=== PATIENT | female | born 1985 | race Caucasian/White ===

== ENCOUNTER → 2016-09-25 | Day surgery (SDC) | payer OTHER ==
[~2016-09-25] VITALS: Ht 165.1 cm; Wt 95.0 kg
[~2016-09-25] MED LIST: *MEPERIDINE 25 MG INJ VIAL PERIprocedural Use ONLY ONE; ACETAMINOPHEN 325MG/HYDROcodone 7.5MG/15ML UDC ONE; AMPICILLIN-SULBACTAM INJ 3 GM VIAL ONE; BACITRACIN TOP OINT 15 GM TUBE ONE; DO NOT ADM ANY ANTICOAGULANT DRUGS XX PRN; ESCI10TA PO; FAMOTIDINE 20 MG/2 ML VIAL ONE; HYDR50TA94 PO; HYDROmorphone HCL PF 1 MG/ML VIAL ONE; LACTATED RINGER'S 1000 ML INJ 1,000 ML IV ONE; LACTATED RINGER'S 1000 ML INJ 1,000 ML ONE; LIDOCAINE 1%/EPINEPHrine 1:100,000 SOLN 30 ML VIAL ONE; MICROFIBRILLAR COLLAGEN HEMOSTAT 1 GM PKT ONE; MICROFIBRILLAR COLLAGEN HEMOSTAT 1 GM PKT TOPICAL ONE; MIDAZOLAM HCL 2 MG/2 ML VIAL ONE; MORPHINE SULFATE 10 MG/ML INJ ONE; NEOSTIGMINE 3 MG/3 ML SYR IV ONE; NORT1TAB PO; OMEP20TA PO; ONDANSETRON HCL 4 MG/2 ML VIAL IV PUSH ONE; OXYMETAZOLINE HCL 0.05% 15 ML NASAL SPRAY NASAL ONE; OXYMETAZOLINE HCL 0.05% 15 ML NASAL SPRAY ONE; PHENYLEPH/NS 1000 MCG/10 ML SYR IV ONE; PROPOFOL 200 MG/20 ML AMP IV ONE; RESP: ALBUTEROL 2.5 MG/3 ML NEB (SCH) ONE; SODIUM CHLORIDE 0.9% INJ 100 ML ONE; ePHEDrine/NS 25 MG/5 ML SYR IV ONE; fentaNYL CITRATE 250 MCG/5 ML AMP ONE
[2016-09-25 07:26] LABS: MEAN CELL VOLUME 84.5 FL (80.0-100.0); MEAN CORPUSCULAR HEMOGLOBIN 29.1 PG (27.0-34.0); MEAN CORPUSCULAR HGB CONC 34.4 % (32.0-36.0); PLATELET COUNT 295 TH/MM3 (150-450); RED BLOOD COUNT 4.38 MIL/MM3 (4.00-5.30); RED CELL DISTRIBUTION WIDTH 12.1 % (11.6-17.2); REVIEW FLAG FINAL; WHITE BLOOD COUNT 9.6 TH/MM3 (4.0-11.0)
[2016-09-25 07:47] VITALS: BP 126/88; PULSE 89; RESP 20; TEMP 97.7; O2SAT 98
[2016-09-25 13:05] VITALS: BP 128/79; PULSE 114; RESP 16; TEMP 99.1; O2SAT 94
--- NOTE | 2016-10-04 07:47 | MP ---
cc: APRIL MCINTOSH M.D. DATE OF OPERATION September 26, [address] April mcintosh PREOPERATIVE DIAGNOSES 1. Adenotonsillar hypertrophy. 2. Chronic tonsillitis. 3. Papillomatous lesion of uvula. 4. Nasal airway obstruction. 5. Nasal septal deviation. 6. Hypertrophy of inferior turbinates. POSTOPERATIVE DIAGNOSES 1. Adenotonsillar hypertrophy. 2. Chronic tonsillitis. 3. Papillomatous lesion of uvula. 4. Nasal airway obstruction. 5. Nasal septal deviation. 6. Hypertrophy of inferior turbinates. OPERATION PERFORMED 1. Open repair nasal septal fracture. 2. Bilateral submucosal resection of inferior turbinates. 3. Adenotonsillectomy. 4. Excisional biopsy of uvular papilloma. INDICATIONS Documented in the history and physical. DESCRIPTION OF OPERATION The patient was taken to OR #2 and placed in the supine position. Following induction of general anesthesia and intubation, the nose was packed bilaterally with cotton pledgets saturated in 0.05% oxymetazoline and the septal mucosa and inferior turbinates were injected with a total of 8 mL of 1% Xylocaine with epinephrine 1:100,000. She was then prepped and draped for surgery. Nasal packing was removed and a hemitransfixion incision was made in the left nasal vestibule and through this incision the mucosa of septum was elevated bilaterally as far as the junction of the bony cartilaginous septum. This exposed the quadrangular cartilage which showed very thick, twisted and irregular deviation with evidence of old septal fracture. A cumulative area of 2 x 2 cm was removed in a piecemeal fashion using a Jennifer elevator and David-Stafford forceps. This was completed preserving 1.5 cm dorsal and caudal cartilaginous struts. When this was completed, the mucosa was elevated from the bony septum and the maxillary crest and the bony septum was removed with David-Stafford forceps and Kevin septal forceps. The maxillary crest was removed using a 6-mm Cezar chisel. The incision was then closed using running suture of 4-0 chromic and the mucosal layers of septum were approximated to each other with a quilting stitch of 4-0 plain gut. Inferior turbinates were addressed next. These were fractured out medially and stab incisions were opened along their inferior surfaces. Through these incisions submucosal soft tissue was reduced using a curette and preserving the conchal bone. The incisions were then cauterized using the suction Bovie at 45 feldman and the remnants of the inferior turbinates were then relateralized to the lateral nasal wall. The nose was then packed with Merocel tampons coated in bacitracin ointment. The table was then turned 90 degrees and a shoulder roll and a McIvor mouth gag were put in place. The tonsils were removed using the ArthroCare Coblator technique. A few sites of venous bleeding were cauterized using the bipolar cautery. These were in the inferior poles of the tonsil fossae bilaterally. When this was completed, the adenoids were removed using the suction Bovie at 45 feldman. Next, the papilloma which was growing on the distal end of the uvula was removed. This was done using sharp dissection. The distal end of the uvula was then cauterized with the Bovie cautery. The stomach was aspirated of few cc's of bilious gastric contents using a #18 [place] sump NG tube. When this was completed, the mouth gag was removed and this procedure was terminated. The patient was reversed from anesthesia and taken to Recovery in good condition. There were no complications. Blood loss was 80 mL. MD JILLIAN Galeano/EVARISTO /10:21 AM /7:10 AM
== END | disposition home or self-care (01) ==
LOC: PHSDC 06:41
PROVIDERS: ATTEND Otolaryngology
DX: J34.3 Hypertrophy of nasal turbinates (principal); J34.2 Deviated nasal septum; J35.3 Hypertrophy of tonsils with hypertrophy of adenoids; D37.05 Neoplasm of uncertain behavior of pharynx; D10.39 Benign neoplasm of other parts of mouth
CPT/HCPCS: 00160; 30140; 30520; 36415; 42100; 42821; 85027; 88304; 88305; J0295; J1170; J2175; J2250; J2270; J2370; J2405; J2710; J3010; J7120; J7613

== ENCOUNTER 2017-03-11 13:53 | Emergency (ER) | payer OTHER ==
[~2017-03-11] VITALS: Ht 165.1 cm; Wt 103.5 kg
[~2017-03-11 13:53] MED LIST changes: -*MEPERIDINE 25 MG INJ VIAL PERIprocedural Use ONLY ONE; -ACETAMINOPHEN 325MG/HYDROcodone 7.5MG/15ML UDC ONE; -AMPICILLIN-SULBACTAM INJ 3 GM VIAL ONE; -BACITRACIN TOP OINT 15 GM TUBE ONE; -DO NOT ADM ANY ANTICOAGULANT DRUGS XX PRN; -FAMOTIDINE 20 MG/2 ML VIAL ONE; -HYDROmorphone HCL PF 1 MG/ML VIAL ONE; -LACTATED RINGER'S 1000 ML INJ 1,000 ML IV ONE; -LACTATED RINGER'S 1000 ML INJ 1,000 ML ONE; -LIDOCAINE 1%/EPINEPHrine 1:100,000 SOLN 30 ML VIAL ONE; -MICROFIBRILLAR COLLAGEN HEMOSTAT 1 GM PKT ONE; -MICROFIBRILLAR COLLAGEN HEMOSTAT 1 GM PKT TOPICAL ONE; -MIDAZOLAM HCL 2 MG/2 ML VIAL ONE; -MORPHINE SULFATE 10 MG/ML INJ ONE; -NEOSTIGMINE 3 MG/3 ML SYR IV ONE; -ONDANSETRON HCL 4 MG/2 ML VIAL IV PUSH ONE; -OXYMETAZOLINE HCL 0.05% 15 ML NASAL SPRAY NASAL ONE; -OXYMETAZOLINE HCL 0.05% 15 ML NASAL SPRAY ONE; -PHENYLEPH/NS 1000 MCG/10 ML SYR IV ONE; -PROPOFOL 200 MG/20 ML AMP IV ONE; -RESP: ALBUTEROL 2.5 MG/3 ML NEB (SCH) ONE; -SODIUM CHLORIDE 0.9% INJ 100 ML ONE; -ePHEDrine/NS 25 MG/5 ML SYR IV ONE; -fentaNYL CITRATE 250 MCG/5 ML AMP ONE
[2017-03-11 14:48] VITALS: BP 172/95; PULSE 89; RESP 16; TEMP 98.1; O2SAT 98
== END 2017-03-11 17:54 | disposition left against medical advice (07) ==
LOC: PHED 13:53
DX: Z53.21 Procedure and treatment not carried out due to patient leaving prior to being seen by health care provider (principal)
CPT/HCPCS: 99281

== ENCOUNTER 2017-06-27 21:05 | Emergency (ER) | payer OTHER ==
[~2017-06-27] VITALS: Ht 165.1 cm; Wt 94.6 kg
[~2017-06-27 21:05] MED LIST changes: -OMEP20TA PO; +OMEP20TA93 PO
[2017-06-27 21:08] VITALS: BP 186/114; PULSE 118; RESP 18; TEMP 98.2; O2SAT 99
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
[2017-06-27] MEDS ORDERED: HYDR-3516 PO (22:06)
[2017-06-27] MEDS ORDERED: PHEN-556 PO (22:06)
[2017-06-27] MEDS ORDERED: HYDR50TA94 PO (22:06)
[2017-06-27] MEDS ORDERED: LEVO100T5 PO (22:06)
[2017-06-27] MEDS ORDERED: ORTH1TAB PO (22:06)
[2017-06-27] MEDS ORDERED: XANA1TAB2 PO (22:06)
--- NOTE | 2017-06-27 22:24 | RADRPT ---
EXAM DATE/TIME: 06/27/2017 21:44 [facility] COMPARISON: No previous studies available for comparison. INDICATIONS : Fall three months ago. Pain ever since in right lower ribs. MEDICAL HISTORY : None. SURGICAL HISTORY : None. ENCOUNTER: Initial ACUITY: 3 months PAIN SCORE: 7/10 LOCATION: Right Ribs FINDINGS: There are healing fractures of the posterior right 10th and 11th ribs. There is no evidence of hemoth orax or pneumothorax. Lungs are grossly clear. Cardiac contours are satisfactory. CONCLUSION: Healing right rib fractures Dennis Wilson MD on June 27, 2017 at 22:21 Board Certified Radiologist. This report was verified electronically.
[2017-06-27] MEDS ORDERED: KETOROLAC TROMETHAMINE 60 MG/2 ML (IM) VIAL IM ONE (22:30)
[2017-06-27 22:55] VITALS: BP 145/95; PULSE 88; RESP 18; O2SAT 99
[2017-06-27] MEDS ORDERED: PERC7.5T13 PO (23:08)
[2017-06-27] MEDS ORDERED: IBUP-232 PO (23:08)
[2017-06-27 23:35] VITALS: RESP 18
== END 2017-06-27 23:41 | disposition home or self-care (01) ==
LOC: PHED 21:05
DX: S22.41XD Multiple fractures of ribs, right side, subsequent encounter for fracture with routine healing (principal); F32.9 Major depressive disorder, single episode, unspecified; K21.9 Gastro-esophageal reflux disease without esophagitis; B19.20 Unspecified viral hepatitis C without hepatic coma; F17.210 Nicotine dependence, cigarettes, uncomplicated; Y93.F2 Activity, caregiving, lifting; Z85.41 Personal history of malignant neoplasm of cervix uteri; Z88.8 Allergy status to other drugs, medicaments and biological substances; Z79.899 Other long term (current) drug therapy
CPT/HCPCS: 71101; 96372; 99284; J1885

== ENCOUNTER 2017-08-15 15:50 | Emergency (ER) | payer OTHER ==
[~2017-08-15] VITALS: Ht 165.1 cm; Wt 93.0 kg
[~2017-08-15 15:50] MED LIST changes: +HYDR-3516 PO; +IBUP-232 PO; +LEVO100T5 PO; -NORT1TAB PO; +ORTH1TAB PO; +PERC7.5T13 PO; +PHEN-556 PO; +XANA1TAB2 PO
[2017-08-15 16:04] VITALS: BP 172/108; PULSE 116; RESP 16; TEMP 98.5; O2SAT 97
[2017-08-15] MEDS ORDERED: HYDR-3583 PO (16:27)
[2017-08-15] MEDS ORDERED: ROBA500T PO (16:29)
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
== END 2017-08-15 17:10 | disposition home or self-care (01) ==
LOC: PHEFT 15:50
DX: M54.5 Low back pain (principal); F32.9 Major depressive disorder, single episode, unspecified; F41.9 Anxiety disorder, unspecified; F17.210 Nicotine dependence, cigarettes, uncomplicated; Z85.41 Personal history of malignant neoplasm of cervix uteri; Z86.19 Personal history of other infectious and parasitic diseases; Z88.8 Allergy status to other drugs, medicaments and biological substances; Z79.899 Other long term (current) drug therapy
CPT/HCPCS: 99283

== ENCOUNTER 2017-08-24 14:15 | Emergency (ER) | payer OTHER ==
[~2017-08-24] VITALS: Ht 165.1 cm; Wt 92.6 kg
[~2017-08-24 14:15] MED LIST changes: -HYDR-3516 PO; +HYDR-3583 PO; -IBUP-232 PO; -PERC7.5T13 PO; +ROBA500T PO
[2017-08-24 14:40] VITALS: BP 190/109; PULSE 116; RESP 18; TEMP 98.5; O2SAT 99
--- NOTE | 2017-08-24 16:26 | PD ---
HPI Chief Complaint: Back/ Neck Pain or Injury Time Seen by Provider: 15:17 Travel History International Travel<30 days: No Contact w/Intl Traveler<30days: No Traveled to known affect area: No History of Present Illness HPI This is a 32-year-old female here with chronic low back pain. She does not endorse any worsening pain. Reports the pain is in his usual place the left lumbar region and radiates down into the leg. No fever chills. No incontinence. No saddle anesthesia. No paresthesias or weakness of the extremity is. She reports her [place] is not helping. Symptom severity is moderate. No aggravating or alleviating factors. 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) Neurologic: No Psychiatric: Yes (ANXIETY) Reproductive: Yes (CERVICAL CANCER) Respiratory: No Immunizations Current: Yes Thyroid Disease: No ?: Not LMP: 3 WEEKS : 0 Past Surgical History Abdominal Surgery: No AICD: No Cardiac Surgery: No Ear Surgery: No Endocrine Surgery: No Eye Surgery: No Genitourinary Surgery: No Gynecologic Surgery: Yes (LEEP PROCEDURE ) Joint Replacement: No Oral Surgery: No Pacemaker: No Thoracic Surgery: No Tonsillectomy: Yes Social History Alcohol Use: No Tobacco Use: Yes (1 ppd) Substance Use: No Allergies-Medications (Allergen,Severity, Reaction): Coded Allergies: ketorolac (Verified Allergy, Severe, LEG EDEMA, 08/24/17) fluconazole (Verified Adverse Reaction, Severe, STOMACH IRRITATION, ) Reported Meds & Prescriptions Reported Meds & Active Scripts Active Robaxin (Methocarbamol) 500 Mg Tab 1,000 Mg PO TID Reported Hydrocodone-Acetaminophen 10-325 mg Tab 1 Tab PO Q6H PRN Hydroxyzine HCl 50 Mg Tab 50 Mg PO TID Levothyroxine (Levothyroxine Sodium) 100 Mcg Tab 100 Mcg PO DAILY Lomaira (Phentermine HCl) 8 Mg Tab 15 Mg PO DAILY Xanax (Alprazolam) 1 Mg Tab 1 Mg PO Q8H PRN Ortho-Novum 1/35 (Norethindrone-Ethinyl Estradiol) 1-35 Mg-Mcg Tab 1 Tab PO DAILY Escitalopram (Escitalopram Oxalate) 10 Mg Tab 10 Mg PO DAILY Omeprazole 20 Mg Tab 40 Mg PO BID Review of Systems Except as stated in HPI: all other systems reviewed are Neg General / Constitutional: No: Fever Eyes: No: Visual changes HENT: No: Headaches Cardiovascular: No: Chest Pain or Discomfort Respiratory: No: Shortness of Breath Gastrointestinal: No: Abdominal Pain Genitourinary: No: Dysuria Physical Exam Narrative GENERAL: Alert and well-appearing 32-year-old female SKIN: Warm and dry. HEAD: Normocephalic. EYES: No injection or drainage. NECK: Supple CARDIOVASCULAR: Regular rate and rhythm without murmurs, gallops, or rubs. RESPIRATORY: Breath sounds equal bilaterally. No accessory muscle use. GASTROINTESTINAL: Abdomen soft, non-tender, nondistended. MUSCULOSKELETAL: No cyanosis, or edema. Normal strength and sensation in lower extremities. BACK: Nontender thoracic or lumbar spine. Without obvious deformity. No CVA tenderness. Data Data Last Documented VS Orders Orders Orphenadrine Inj (Norflex Inj) (08/24/17 16:30) Ed Discharge Order (08/24/17 16:27) MDM Medical Decision Making Medical Screen Exam Complete: Yes Emergency Medical Condition: Yes Differential Diagnosis Acute on chronic low back pain, lumbar strain, sciatica Narrative Course This is a 32-year-old female here with chronic low back pain. She does not endorse any worsening pain. Reports the pain is in his usual place the left lumbar region and radiates down into the leg. No fever chills. No incontinence. No saddle anesthesia. She reports her [place] is not helping. She has a normal neurologic exam. No midline spine tenderness. She is well- appearing. Vital signs are stable. She'll be given a shot of Norflex and instructed to follow-up with her primary doctor. Diagnosis Primary Impression: Back pain Qualified Codes: M54.5 - Low back pain Referrals: Orthopaedic Surgeon Orthopedist Additional Instructions: Continue current pain regimen. Follow-up with your primary doctor. Apply ice and/or heat for comfort. Disposition: 01 DISCHARGE HOME Condition: Stable Jocelyne Jasmine Aug 24, 2017 16:26
[2017-08-24] MEDS ORDERED: ORPHENADRINE INJ 60 MG/2 ML AMP IM ONE (16:30)
== END 2017-08-24 16:52 | disposition home or self-care (01) ==
LOC: PHED 14:15 → PHEFT 16:52
DX: M54.5 Low back pain (principal); G89.29 Other chronic pain; F32.9 Major depressive disorder, single episode, unspecified; F17.210 Nicotine dependence, cigarettes, uncomplicated; Z86.19 Personal history of other infectious and parasitic diseases; Z85.41 Personal history of malignant neoplasm of cervix uteri; Z88.8 Allergy status to other drugs, medicaments and biological substances; Z79.899 Other long term (current) drug therapy
CPT/HCPCS: 96372; 99283; J2360

== ENCOUNTER 2018-03-24 06:17 | Observation (INO) ==
--- NOTE | 2018-03-24 06:36 | ED ---
HPI General Chief complaint: Overdose Stated complaint: poss overdose Time Seen by Provider: 03/24/18 06:32 Source: patient and EMS Mode of arrival: EMS Limitations: altered mental status History of Present Illness HPI narrative: The patient is a 32 year old female who presents to the [facility] emergency department with a history of chest pain and shortness of breath that the patient reports began prior to arrival. The patient reports that she was sleeping in her car when it began. She reports that earlier in the evening she did use heroin. She was concerned that she may have overdosed, therefore she went into a local gas station and told him to call ambulance services. The patient denies suicidal ideations, however she reports that she has been depressed. She denies an intent to harm herself by overdosing, however she is self-medicating her pain. She reports that she has been abusing drugs throughout the weekend. She reports that she has also been depressed because her boyfriend left her for his ex-girlfriend. The patient reports that she has been using methamphetamine and heroin throughout the weekend. The patient reports a history of intermittent IV drug use for the last 2 years. She denies any prior history of endocarditis. She does report having a history of hepatitis C. Unfortunately, the patient is somewhat of a poor historian. She has difficulty quantifying timeframes or character of pain. The patient shows me that the chest pain is in the upper center portion of her chest. Review of systems otherwise, the patient is unsure whether she has had any recent. She denies any significant cough or congestion. She denies having any neck pain, abdominal pain, vomiting, diarrhea, urinary symptoms, or neurologic symptoms. Related Data Home Medications Medication Instructions Recorded Confirmed cabergoline 0.5 mg PO WEEKLY 01/19/18 03/24/18 clonazepam [Klonopin] 3 mg PO TID 01/19/18 03/24/18 hydrocodone-acetaminophen 1 tab PO Q6H PRN 01/19/18 03/24/18 levothyroxine 100 mcg PO DAILY 01/19/18 03/24/18 Allergies Allergy/AdvReac Type Severity Reaction Status Date / Time ketorolac Allergy Severe LEG EDEMA Verified 03/24/18 06:22 fluconazole AdvReac Severe STOMACH Verified 03/24/18 06:22 IRRITATION Review of Systems ROS: all other systems reviewed are negative [facility] Medical History Medical History Hepatitis C (Acute) IVDU (intravenous drug user) (Acute) Surgical History Surgical History H/O LEEP (Acute) History of tonsillectomy (Acute) Social History Social History Substance History: Active Abuse Second Hand Smoke Exposure: Yes Smoking Status: Current every day smoker Tobacco Type: Cigarettes Packs Per Day: 1 Cigarettes Per Day: 20.0 How Often Do You Have a Drink Containing Alcohol: Monthly or less Recent Travel in [facility] within the Last 8 Weeks: No Recent Out of Country Travel within the Last 8 Weeks: No Substance Abuse Detail Heroin: Substance Use Status: Active Route Used Substance Abuse: Intravenously Immunization History Tetanus Immunization: Unsure Exam Const General: cooperative, well developed and disheveled Nutritional Appearance: well nourished Orientation: alert, awake, oriented to person, oriented to place and not oriented to time HENMT Head: normocephalic and atraumatic Nose: no nasal discharge and no epistaxis Mouth: moist mucous membranes Throat: posterior oropharynx normal and uvula midline Eyes Sclera: normal sclerae Pupils: PERRL Neck Neck: no meningeal signs, trachea midline and no JVD Chest Chest: other (No chest wall tenderness on palpation.) Resp Effort & Inspection: no use of accessory muscles Auscultation: clear to auscultation bilaterally Cardio Rate: tachycardic Rhythm: regular rhythm Heart Sounds: no murmurs GI Inspection: non-distended Palpation: soft, no hepatosplenomegaly and nontender Auscultation: normal bowel sounds Back/Spine/Pelvis Back: no CVA tenderness Cervical Spine: No cervical spinal tenderness Thoracic/Lumbar Spine: No thoracic spinal tenderness and No lumbar spinal tenderness Skin General: dry skin (warm) Lesions: other (Multiple areas of what appear to be pick cleary on her extremities with crusting. No signs of infection or drainage. No abscess formation.) Neuro General: alert, awake and oriented (Person and place, however not time.) Cranial Nerves: CN's II-XI intact bilaterally Speech: speech normal Motor: strength 5/5 throughout and no movement abnormalities noted Sensory Exam: no sensory deficits noted Extrem General: normal to inspection (No calf tenderness on palpation. 2+ pulses in all 4 extremities.), no clubbing, no cyanosis and no edema Psych Mood: anxious mood Affect: anxious affect Judgment: limited and poor Course Reevaluation(s) Reevaluation #1: Patient signed over to me to follow workup and admit. D-dimer elevated. CT pulmonary added on and without PE. Will admit for further care of chest pain in setting of IV drug user. Patient updated Dr. Alamo agrees to admission Initial Documented Vital Signs Temperature 98.2 F 03/24/18 06:23 Pulse Rate 109 H 03/24/18 06:23 Respiratory Rate 16 03/24/18 06:23 Blood Pressure 160/101 H 03/24/18 06:23 Pulse Oximetry 100 03/24/18 06:23 Last Documented Vital Signs Temperature 98.1 F 03/24/18 12:58 Pulse Rate 85 03/24/18 12:58 Respiratory Rate 20 03/24/18 12:58 Blood Pressure 138/83 03/24/18 12:58 Pulse Oximetry 98 03/24/18 12:58 Medical Decision Making MDM Narrative Medical decision making narrative: During the course of the patient's emergency department visit, the patient's history, examination, and differential diagnosis were reviewed with the patient. The patient was placed on a rn cardiac with oximetry and frequent blood pressure monitoring. The patient had IV access obtained and blood work sent for analysis. A diagnostic evaluation was started regarding the patient's chest pain and shortness of breath with history of IV drug use. The patient was initially provided normal saline IV fluids, broad-spectrum antibiotic coverage due to a concern for endocarditis. The patient's laboratory studies and imaging are pending at the conclusion of my shift. The patient's case will be checked out to the oncoming emergency physician. I anticipate that the patient will be admitted to the hospital for further evaluation for possible endocarditis. Medical Screen Exam Complete: Yes Emergency Medical Condition: Yes Differential Diagnosis Differential Diagnosis: Endocarditis, versus acute coronary syndrome, versus pulmonary embolism, versus pneumonia Medical Records Medical records reviewed: Yes I reviewed the patient's medical records. Lab Data Lab results reviewed: Yes I reviewed the patient's lab results. Result diagrams: 03/24/18 06:40 03/24/18 06:40 POC Results POC Urine Results Negative Lab Results 03/24/18 03/24/18 03/24/18 Range/Units 06:40 06:40 06:40 WBC 10.0 (4.0-11.0) th/mm3 RBC 4.74 (4.00-5.30) mil/mm3 Hgb 13.3 (11.6-15.3) gm/dL Hct 39.2 (35.0-46.0) % MCV 82.6 (80.0-100.0) fL MCH 28.1 (27.0-34.0) pg MCHC 34.0 (32.0-36.0) % RDW 14.0 (11.6-17.2) % Plt Count 384 (150-450) th/mm3 MPV 8.9 (7.0-11.0) fL Neut % (Auto) 65.4 (16.0-70.0) % Lymph % (Auto) 26.0 (9.0-44.0) % [place] % (Auto) 8.1 H (0.0-8.0) % Eos % (Auto) 0.1 (0.0-4.0) % Baso % (Auto) 0.4 (0.0-2.0) % Neut # (Auto) 6.6 (1.8-7.7) th/mm3 Lymph # (Auto) 2.6 (1.0-4.8) th/mm3 [place] # (Auto) 0.8 (0.0-0.9) th/mm3 Eos # (Auto) 0.0 (0.0-0.4) th/mm3 Baso # (Auto) 0.0 (0.0-0.2) th/mm3 WBC Differential . Differential Comment Auto diff final ESR (0-20) mm/hr PT (9.8-11.6) sec INR Ratio APTT (24.3-30.1) sec D-Dimer Quant (PE/DVT) 0.79 H (0.00-0.50) mg/L FEU Sodium 143 (136-145) meq/L Potassium 3.3 L (3.5-5.1) meq/L Chloride 110 H (98-107) meq/L Carbon Dioxide 24.7 (21.0-32.0) meq/L Anion Gap 8 (5-15) meq/L BUN 9 (7-18) mg/dL Creatinine 1.15 H (0.50-1.00) mg/dL Estimated GFR 54 L (>89) mL/min Random Glucose 117 H (74-106) mg/dL Lactic Acid (0.4-2.0) mmol/L Calcium 9.5 (8.5-10.1) mg/dL Magnesium (1.5-2.5) mg/dL Total Bilirubin 0.5 (0.2-1.0) mg/dL AST 21 (15-37) U/L ALT 22 (10-53) U/L Alkaline Phosphatase 111 (45-117) U/L Total Creatine Kinase 168 (26-192) U/L CK-MB (CK-2) 1.3 (0.5-3.6) ng/mL Troponin I Less than 0.02 L (0.02-0.05) ng/mL C-Reactive Protein 1.20 H (0.00-0.30) mg/dL B-Natriuretic Peptide (0-100) pg/mL Total Protein 8.7 H (6.4-8.2) g/dL Albumin 4.0 (3.4-5.0) g/dL Lipase 217 (73-393) U/L TSH (0.358-3.740) uIU/mL Free T4 (0.76-1.46) ng/dL Serum Alcohol Less than 3 (0-5) mg/dL 03/24/18 03/24/18 03/24/18 Range/Units 06:40 06:40 06:40 WBC (4.0-11.0) th/mm3 RBC (4.00-5.30) mil/mm3 Hgb (11.6-15.3) gm/dL Hct (35.0-46.0) % MCV (80.0-100.0) fL MCH (27.0-34.0) pg MCHC (32.0-36.0) % RDW (11.6-17.2) % Plt Count (150-450) th/mm3 MPV (7.0-11.0) fL Neut % (Auto) (16.0-70.0) % Lymph % (Auto) (9.0-44.0) % [place] % (Auto) (0.0-8.0) % Eos % (Auto) (0.0-4.0) % Baso % (Auto) (0.0-2.0) % Neut # (Auto) (1.8-7.7) th/mm3 Lymph # (Auto) (1.0-4.8) th/mm3 [place] # (Auto) (0.0-0.9) th/mm3 Eos # (Auto) (0.0-0.4) th/mm3 Baso # (Auto) (0.0-0.2) th/mm3 WBC Differential Differential Comment ESR 48 H (0-20) mm/hr PT (9.8-11.6) sec INR Ratio APTT (24.3-30.1) sec D-Dimer Quant (PE/DVT) (0.00-0.50) mg/L FEU Sodium (136-145) meq/L Potassium (3.5-5.1) meq/L Chloride (98-107) meq/L Carbon Dioxide (21.0-32.0) meq/L Anion Gap (5-15) meq/L BUN (7-18) mg/dL Creatinine (0.50-1.00) mg/dL Estimated GFR (>89) mL/min Random Glucose (74-106) mg/dL Lactic Acid 1.2 (0.4-2.0) mmol/L Calcium (8.5-10.1) mg/dL Magnesium (1.5-2.5) mg/dL Total Bilirubin (0.2-1.0) mg/dL AST (15-37) U/L ALT (10-53) U/L Alkaline Phosphatase (45-117) U/L Total Creatine Kinase (26-192) U/L CK-MB (CK-2) (0.5-3.6) ng/mL Troponin I (0.02-0.05) ng/mL C-Reactive Protein (0.00-0.30) mg/dL B-Natriuretic Peptide 18 (0-100) pg/mL Total Protein (6.4-8.2) g/dL Albumin (3.4-5.0) g/dL Lipase (73-393) U/L TSH (0.358-3.740) uIU/mL Free T4 (0.76-1.46) ng/dL Serum Alcohol (0-5) mg/dL 03/24/18 03/24/18 03/24/18 Range/Units 06:40 06:40 10:26 WBC (4.0-11.0) th/mm3 RBC (4.00-5.30) mil/mm3 Hgb (11.6-15.3) gm/dL Hct (35.0-46.0) % MCV (80.0-100.0) fL MCH (27.0-34.0) pg MCHC (32.0-36.0) % RDW (11.6-17.2) % Plt Count (150-450) th/mm3 MPV (7.0-11.0) fL Neut % (Auto) (16.0-70.0) % Lymph % (Auto) (9.0-44.0) % [place] % (Auto) (0.0-8.0) % Eos % (Auto) (0.0-4.0) % Baso % (Auto) (0.0-2.0) % Neut # (Auto) (1.8-7.7) th/mm3 Lymph # (Auto) (1.0-4.8) th/mm3 [place] # (Auto) (0.0-0.9) th/mm3 Eos # (Auto) (0.0-0.4) th/mm3 Baso # (Auto) (0.0-0.2) th/mm3 WBC Differential Differential Comment ESR (0-20) mm/hr PT 10.6 (9.8-11.6) sec INR 1.0 Ratio APTT 26.1 (24.3-30.1) sec D-Dimer Quant (PE/DVT) (0.00-0.50) mg/L FEU Sodium (136-145) meq/L Potassium (3.5-5.1) meq/L Chloride (98-107) meq/L Carbon Dioxide (21.0-32.0) meq/L Anion Gap (5-15) meq/L BUN (7-18) mg/dL Creatinine (0.50-1.00) mg/dL Estimated GFR (>89) mL/min Random Glucose (74-106) mg/dL Lactic Acid (0.4-2.0) mmol/L Calcium (8.5-10.1) mg/dL Magnesium 1.9 1.9 (1.5-2.5) mg/dL Total Bilirubin (0.2-1.0) mg/dL AST (15-37) U/L ALT (10-53) U/L Alkaline Phosphatase (45-117) U/L Total Creatine Kinase 184 (26-192) U/L CK-MB (CK-2) (0.5-3.6) ng/mL Troponin I Less than 0.02 L (0.02-0.05) ng/mL C-Reactive Protein (0.00-0.30) mg/dL B-Natriuretic Peptide (0-100) pg/mL Total Protein (6.4-8.2) g/dL Albumin (3.4-5.0) g/dL Lipase (73-393) U/L TSH 2.870 (0.358-3.740) uIU/mL Free T4 1.13 (0.76-1.46) ng/dL Serum Alcohol (0-5) mg/dL Imaging Data Attestation: I personally reviewed and interpreted this imaging study as follows : Radiologist's impression: Chest X-Ray 03/24/18 06:38 CONCLUSION: 1. No acute cardiopulmonary disease. Chest CTA 03/24/18 07:27 CONCLUSION: 1. No CT evidence for pulmonary artery embolism as questioned. 2. 1 cm solid nodule in the medial left lung base. Consider CT examination in 3 months or PET/CT for further evaluation per 2017 Fleischner criteria. ECG Data Attestation: I personally reviewed and interpreted this ECG as follows: Interpretation: The patient had a EKG done on arrival that shows a sinus tachycardia rate of 104, QRS duration 98 ms, QTC [address] segment elevation, T waves are inverted in lead III, V1. Discharge Plan Discharge Disposition Patient Disposition: 30 Still Patient Discharge Order Discharge Orders: AMA Discharge (Routine); Ordered 03/24/18 Ordered By: Earle Alamo Discharge Details Diagnosis: Chest pain, IVDU (intravenous drug user) Physicians Team ED Provider: Lily Elliott Primary Care Provider: Mitch Easley Attending Provider: Earle Alamo Other Providers: Dilip Diaz Status ED Status: Left Department Discharge Information Discharge Date/Time: 03/24/18 10:34
--- NOTE | 2018-03-24 06:58 | XR ---
EXAM DATE: 03/24/2018 6:54 AM EDT AGE/SEX: 32 years / Female INDICATIONS: Chest pain today. CLINICAL DATA: This is the patient's initial encounter. Patient reports that signs and symptoms have been present for 1 day and indicates a pain score of 3/10. MEDICAL/SURGICAL HISTORY: None. None. COMPARISON: [facility], RIBS RIGHT(W PA CXR MIN 3VWS), 06/27/2017. . FINDINGS: A single AP view of the chest demonstrates the lungs to be symmetrically aerated without evidence of mass, infiltrate or effusion. The cardiomediastinal contours are unremarkable. Osseous structures a re intact. CONCLUSION: 1. No acute cardiopulmonary disease. Electronically signed by: Yoni Li MD 03/24/2018 6:56 AM EDT
[2018-03-24] MEDS ORDERED: Sod Chloride 0.9% Inj 1,000 ML IV.SIG ONE (06:59)
[2018-03-24] MEDS ORDERED: Vancomycin Inj 1 GM/200 ML PIGGYBACK IV.SIG ONE (06:59)
[2018-03-24] MEDS ORDERED: Piperacil/Tazo 3.375 GM Premix 50 ML IV.SIG ONE (06:59)
[2018-03-24 07:05] LABS: Baso % (Auto) 0.4 % (0.0-2.0); Eos % (Auto) 0.1 % (0.0-4.0); Hematocrit 39.2 % (35.0-46.0); Hemoglobin 13.3 gm/dL (11.6-15.3); Lymph # (Auto) 2.6 th/mm3 (1.0-4.8); Mean Corpuscular Hemoglobin 28.1 pg (27.0-34.0); Mean Corpuscular Volume 82.6 fL (80.0-100.0); Mean Platelet Volume 8.9 fL (7.0-11.0); Mono # (Auto) 0.8 th/mm3 (0.0-0.9); Mono % (Auto) 8.1 % (0.0-8.0); Neut # (Auto) 6.6 th/mm3 (1.8-7.7); Neut % (Auto) 65.4 % (16.0-70.0); Platelet Count 384 th/mm3 (150-450); Red Blood Count 4.74 mil/mm3 (4.00-5.30)
[2018-03-24 07:26] LABS: Activated Partial Thrombo Time 26.1 sec (24.3-30.1); Prothrombin Time 10.6 sec (9.8-11.6)
[2018-03-24 07:36] LABS: Anion Gap 8 meq/L (5-15); Aspartate Aminotransferase 21 U/L (15-37); Blood Urea Nitrogen 9 mg/dL (7-18); Calcium 9.5 mg/dL (8.5-10.1); Carbon Dioxide 24.7 meq/L (21.0-32.0); Chloride 110 meq/L (98-107); Glomerular Filtration Rate 54 mL/min (>89); Glucose,Random 117 mg/dL (74-106); Lipase 217 U/L (73-393); Potassium 3.3 meq/L (3.5-5.1); Sodium 143 meq/L (136-145)
[2018-03-24 07:37] LABS: Alanine Aminotransferase 22 U/L (10-53)
[2018-03-24 07:40] LABS: Alkaline Phosphatase 111 U/L (45-117); Creatine Kinase 168 U/L (26-192); Total Protein 8.7 g/dL (6.4-8.2)
[2018-03-24 07:58] LABS: Creatine Kinase MB 1.3 ng/mL (0.5-3.6)
[2018-03-24] MEDS ORDERED: Vancomycin Inj 1,000 MG in Sodium Chlor 0.9% Inj 250 ML IV.SIG ONE (08:00)
--- NOTE | 2018-03-24 08:41 | CT ---
EXAM DATE: 03/24/2018 8:35 AM EDT AGE/SEX: 32 years / Female INDICATIONS: Shortness of breath. CLINICAL DATA: This is the patient's initial encounter. Patient reports that signs and symptoms have been present for 1 day and indicates a pain score of 3/10. MEDICAL/SURGICAL HISTORY: Hepatitis C. Tonsillectomy. RADIATION DOSE: 10.33 CTDI (mGy) COMPARISON: C, CHEST 1V SINGLE AP, 03/24/2018. . TECHNIQUE: Volumetric scanning was performed using a multi-row detector CT scanner during bolus infu cecilia of 75 ml Omnipaque 350 (iohexol) nonionic water-soluble contrast as a single exam dose. The poppy a was post processed with a variety of visualization algorithms including full volume maximum intensi ty projection and sliding thin slab reformation. Using automated exposure control and adjustment of the mA and/or kV according to patient size, radiation dose was kept as low as reasonably achievable t o obtain optimal diagnostic quality images. DICOM format image data is available electronically for review and comparison. FINDINGS: Pulmonary Arteries: No filling defects are seen in the pulmonary arteries through the segmental vess els. The main pulmonary artery is normal in diameter. Lun cm solid nodule in the medial left lung base. No additional focal significant parenchymal ab normalities. Pleura: No effusion, significant pleural thickening or pneumothorax. Mediastinum: Heart is unremarkable without pericardial effusion.No evidence of mediastinal or hilar adenopathy. Osseous Structures: No abnormal focal lytic or blastic bony lesions. Healed left-sided rib fractures. Other: Visulaized upper abdomen is unremarkable. CONCLUSION: 1. No CT evidence for pulmonary artery embolism as questioned. 2. 1 cm solid nodule in the medial left lung base. Consider CT examination in 3 months or PET/CT for further evaluation per 2017 Fleischner criteria. Electronically signed by: Yoni Li MD 03/24/2018 8:40 AM EDT
[2018-03-24] MEDS ORDERED: ALPRAZolam 0.5 MG Tablet PO PRN (09:44)
[2018-03-24] MEDS ORDERED: Temazepam 15 MG Capsule PO PRN (09:44)
[2018-03-24] MEDS ORDERED: Acetaminophen 500 MG Tablet PO PRN (09:44)
--- NOTE | 2018-03-24 10:37 | P.HPIM ---
History of Present Illness Primary Care Physician: Mitch Easley Chief Complaint: chest pain History of Present Illness: Patient is a 32-year-old female with history of hypothyroidism. Patient admits to difficulties with IV drug use. Most recently patient states that she used heroin the evening prior to admission. Patient reports that she is self-medicating for pain. Unclear what the source of this pain is. Patient also complains of depression due to a breakup with her boyfriend. Per patient she has had difficulties with intermittent IV drug use for the last 2 years. No prior history of endocarditis. Patient has a history of untreated hepatitis C. Patient denies suicidal ideation or intent. However patient was concerned that she might have overdosed and therefore went to a local gas station and told attendant to call an ambulance. Patient reported to the ER with complaint of chest pain and shortness of breath. Initial set of cardiac enzymes were within normal limits. EKG did not show any acute ischemic changes. CTA of the thorax was negative. Patient will be admitted to observation status and I will trend out her cardiac enzymes and obtain serial EKGs. Psychiatry consultation has been requested. Pt was briefly under Segundo Act in the [facility] 01/19/[address] Gagnon, Psychiatrist who lifted her Segundo Act. (Above information obtained from medical records. Pt left AMA before I was able to interview her) PMH: - IV drug use - Hepatitis C - hypothyroid - anxiety/depression - hyperprolactinemia? - OA - nicotine dependence - bipolar disorder? PSH: NONE FHX: Non-contributory SHX: IV drug use ALL: NKDA MEDICATIONS: -cabergoline - klonopine - lortab - levothyroxine. - Diagnosis (1) Chest pain (2) IVDU (intravenous drug user) Review of Systems Constitutional: Denies anorexia, Denies body ache(s), Denies chills, Denies fever(s), Denies night sweats, Denies poor appetite, Denies weight gain, Denies weight loss Eyes: Denies blind spots, Denies blurry vision, Denies change in vision, Denies double vision, Denies discharge, Denies loss of peripheral vision, Denies loss of vision, Denies other visual disturbances, Denies pain Ears, Nose, Mouth, and Throat: Denies bleeding gums, Denies difficulty swallowing, Denies dizziness, Denies headache(s), Denies hearing loss, Denies pain with swallowing, Denies poor balance, Denies ringing in the ears, Denies sore throat, Denies throat swelling, Denies tongue swelling Cardiovascular: Reports chest pain, Denies excessive sweating, Denies fainting, Denies fast heart rate, Denies generalized swelling, Denies irregular heart rhythm, Denies leg swelling, Denies lightheadedness, Denies slow heart rate Respiratory: Denies cough, Denies shortness of breath, Denies snoring, Denies wheezing Gastrointestinal: Denies abdominal pain, Denies belching, Denies black, tarry stools, Denies bright, red blood in stools, Denies change in bowel habits, Denies change in stools, Denies coffee ground vomit, Denies constipation, Denies cramping, Denies difficulty swallowing, Denies heartburn, Denies incontinent of stools, Denies loose stools, Denies nausea, Denies pain with swallowing, Denies vomiting, Denies vomiting blood Genitourinary: Denies abnormal vaginal bleeding, Denies blood in urine, Denies difficulty starting urination, Denies difficulty urinating, Denies frequent nighttime urination, Denies painful urination, Denies pelvic pain, Denies side pain, Denies urinary incontinence, Denies urinary hesitancy, Denies urinary urgency Musculoskeletal: Denies abnormal walking, Denies back pain, Denies body aches, Denies decreased muscle mass, Denies joint pain, Denies joint swelling, Denies muscle weakness, Denies neck pain, Denies numbness, Denies stiffness, Denies tingling Skin/Breast: Denies bleeding lesions, Denies change in skin color, Denies changing lesions, Denies itching, Denies lesions, Denies new lesions, Denies non -healing lesions, Denies redness, Denies sensitivity to light, Denies rash, Denies skin pain, Denies skin swelling, Denies skin ulcer, Denies sores, Denies unusual bruising, Denies wounds, Denies yellowing of the skin Neurologic: Denies abnormal hearing, Denies abnormal movements, Denies abnormal speech, Denies abnormal walking, Denies behavioral changes, Denies burning sensations, Denies confusion, Denies dizziness, Denies fainting, Denies frequent falls, Denies headache(s), Denies lack of coordination, Denies localized weakness, Denies loss of vision, Denies memory loss, Denies numbness, Denies other visual disturbances, Denies radiating pain, Denies restless legs, Denies convulsions, Denies seizure-like activity, Denies sensory deficit, Denies tingling/numbness/burning sensations, Denies tremor(s), Denies unsteadiness, Denies weakness Psychiatric: Denies abnormal sleep pattern, Denies anxiety, Denies behavioral changes, Denies change in appetite, Denies confusion, Denies depression, Denies difficulty concentrating, Denies hearing things others do not hear, Denies irritability, Denies lack of enjoyment, Denies memory loss, Denies mood swings, Denies panic attacks, Denies paranoia, Denies seeing things others do not see, Denies thoughts of hurting/killing others, Denies thoughts of hurting/killing yourself Endocrine: Denies cold intolerance, Denies excessive sweating, Denies fatigue, Denies flushing, Denies heat intolerance, Denies increased hunger, Denies increased thirst, Denies increased urination, Denies rapid, pounding, or irregular heartbeat Hematologic/Lymphatic: Denies easy bleeding, Denies easy bruising, Denies enlarged lymph nodes Allergic/Immunologic: Denies hives, Denies lip swelling, Denies throat swelling , Denies wheezing PMFSH - History History Provided By: Patient - Medical History Medical History: Medical History (Last Updated 03/24/18 @ 06:53 by Lily Elliott MD) Hepatitis C IVDU (intravenous drug user) - Surgical History Surgical History: Surgical History (Last Updated 03/24/18 @ 06:53 by Lily Elliott MD) H/O LEEP History of tonsillectomy - Tobacco History Tobacco Use In Past 30 Days: Yes Smoking Status: Current every day smoker Tobacco Type: Cigarettes Packs Per Day: 1 Cigarettes Per Day: 20.0 - Alcohol History How Often Do You Have a Drink Containing Alcohol: Monthly or less - Substance Use History Substance History: Active Abuse - Substance Use Type Heroin Status: Active Route Used: Intravenously - Travel History Recent Travel in the [place] Within the Last 8 Weeks: No Recent Travel Out of the Country Within the Last 8 Weeks: No - Immunization History Tetanus Immunization: Unsure Medications and Allergies Active Medications: Active Medications Acetaminophen (Tylenol) 500 mg PO Q4H PRN PRN Reason: HEADACHE Alprazolam (Xanax) 0.5 mg PO TID PRN PRN Reason: ANXIETY Aspirin (Aspirin) 325 mg PO DAILY RAYMOND Potassium Chloride/Dextrose/Sod Cl (D5w/1/2ns + Kcl 20 Meq Inj) 1,000 mls @ 75 mls/hr IV.CONT .[id number] RAYMOND Nitroglycerin (Nitrostat Sl) 0.4 mg SL Q5M PRN PRN Reason: ANGINA Sodium Chloride (Ns Flush) 2 ml IV.FLUSH UNSCH PRN PRN Reason: FLUSH AFTER USING IV ACCESS Sodium Chloride (Ns Flush) 2 ml IV.FLUSH BID RAYMOND Sodium Chloride (Ns Flush) 2 ml IV.FLUSH UNSCH PRN PRN Reason: FLUSH AFTER USING IV ACCESS Temazepam (Restoril) 15 mg PO HS PRN PRN Reason: INSOMNIA Allergies Allergy/AdvReac Type Severity Reaction Status Date / Time ketorolac Allergy Severe LEG EDEMA Verified 03/24/18 06:22 fluconazole AdvReac Severe STOMACH Verified 03/24/18 06:22 IRRITATION Home Medications Medication Instructions Recorded Confirmed Type cabergoline 0.5 mg PO WEEKLY 01/19/18 03/24/18 History clonazepam [Klonopin] 3 mg PO TID 01/19/18 03/24/18 History hydrocodone-acetaminophen 1 tab PO Q6H PRN 01/19/18 03/24/18 History levothyroxine 100 mcg PO DAILY 01/19/18 03/24/18 History Exam Vital signs: Vital Signs 03/24/18 06:23 03/24/18 07:19 03/24/18 07:21 Temperature 98.2 F Pulse Rate 109 H 88 86 Respiratory Rate 16 16 Blood Pressure 160/101 H 150/92 H Pulse Oximetry 100 98 99 Intake & Output 03/23/18 03/24/18 03/24/18 18:59 06:59 18:59 Intake Total 1300 / 1300 Balance 1300 / 1300 Weight 63.503 kg Intake: IV 1300 / 1300 Zosyn 3.375 GM Premix 50 ML @ 50 / 50 100 mls/hr IV.SIG ONCE ONE Rx#: [id number] NS Inj 1,000 ML @ Wide Open IV. 1000 / 1000 SIG BOLUS ONE Rx#:[id number] Vancomycin Inj 1,000 MG In NS 250 / 250 Inj 250 ML @ 250 mls/hr IV.SIG ONCE ONE Rx#:[id number] Results - Labs CBC & Chem 7: 03/24/18 06:40 03/24/18 06:40 Labs: Short CBC 03/24/18 Range/Units 06:40 WBC 10.0 (4.0-11.0) th/mm3 Hgb 13.3 (11.6-15.3) gm/dL Hct 39.2 (35.0-46.0) % Plt Count 384 (150-450) th/mm3 BMP 03/24/18 06:40 Sodium 143 Potassium 3.3 L Chloride 110 H Carbon Dioxide 24.7 BUN 9 Creatinine 1.15 H Calcium 9.5 Cardiac Enzymes 03/24/18 Range/Units 06:40 Total Creatine Kinase 168 (26-192) U/L CK-MB (CK-2) 1.3 (0.5-3.6) ng/mL Troponin I Less than 0.02 L (0.02-0.05) ng/mL Liver Function 03/24/18 Range/Units 06:40 Total Bilirubin 0.5 (0.2-1.0) mg/dL AST 21 (15-37) U/L ALT 22 (10-53) U/L Alkaline Phosphatase 111 (45-117) U/L Albumin 4.0 (3.4-5.0) g/dL - Imaging Impressions Chest X-Ray 03/24/18 06:38 CONCLUSION: 1. No acute cardiopulmonary disease. Chest CTA 03/24/18 07:27 CONCLUSION: 1. No CT evidence for pulmonary artery embolism as questioned. 2. 1 cm solid nodule in the medial left lung base. Consider CT examination in 3 months or PET/CT for further evaluation per 2017 Fleischner criteria. Caprini VTE Risk Assessment Caprini VTE Risk Assessment: No/Low Risk (score <= 1) Caprini Risk Assessment Model: Point Value = 1 Point Value = 2 Point Value = 3 Point Value = 5 Age 41-60 Minor surgery BMI > 25 kg/m2 Swollen legs Varicose veins or History of unexplained or recurrent spontaneous Oral contraceptives or hormone replacement Sepsis (< 1 month) Serious lung disease, including pneumonia (< 1 month) Abnormal pulmonary function Acute myocardial infarction Congestive heart failure (< 1 month) History of inflammatory bowel disease Medical patient at bed rest Age 61-74 Arthroscopic surgery Major open surgery (> 45 min) Laparoscopic surgery (> 45 min) Malignancy Confined to bed (> 72 hours) Immobilizing plaster cast Central venous access Age >= 75 History of VTE Family history of VTE Factor V Leiden Prothrombin [id number] Lupus anticoagulant Anticardiolipin antibodies Elevated serum homocysteine Heparin-induced thrombocytopenia Other congenital or acquired thrombophilia Stroke (< 1 month) Elective arthroplasty Hip, pelvis, or leg fracture Acute spinal cord injury (< 1 month) Prophylaxis Regimen: Total Risk Factor Score Risk Level Prophylaxis Regimen 0-1 Low Early ambulation 2 Moderate Order ONE of the following: *Sequential Compression Device (SCD) *Heparin 5000 units SQ BID 3-4 Higher Order ONE of the following medications: *Heparin 5000 units SQ TID *Enoxaparin/Lovenox 40 mg SQ daily (WT < 150 kg, CrCl > 30 mL/min) *Enoxaparin/Lovenox 30 mg SQ daily (WT < 150 kg, CrCl > 10-29 mL/min) *Enoxaparin/Lovenox 30 mg SQ BID (WT < 150 kg, CrCl > 30 mL/min) AND/OR *Sequential Compression Device (SCD) 5 or more Highest Order ONE of the following medications: *Heparin 5000 units SQ TID (Preferred with Epidurals) *Enoxaparin/Lovenox 40 mg SQ daily (WT < 150 kg, CrCl > 30 mL/min) *Enoxaparin/Lovenox 30 mg SQ daily (WT < 150 kg, CrCl > 10-29 mL/min) *Enoxaparin/Lovenox 30 mg SQ BID (WT < 150 kg, CrCl > 30 mL/min) AND *Sequential Compression Device (SCD) Assessment and Plan - Assessment (1) Chest pain Code(s): R07.9 - Chest pain, unspecified Status: Acute Plan: Patient is a 32-year-old female with history of hypothyroidism. Patient admits to difficulties with IV drug use. Most recently patient states that she used heroin the evening prior to admission. Patient reports that she is self-medicating for pain. Unclear what the source of this pain is. Patient also complains of depression due to a breakup with her boyfriend. Per patient she has had difficulties with intermittent IV drug use for the last 2 years. No prior history of endocarditis. Patient has a history of untreated hepatitis C. Patient denies suicidal ideation or intent. However patient was concerned that she might have overdosed and therefore went to a local gas station and told attendant to call an ambulance. Patient reported to the ER with complaint of chest pain and shortness of breath. Initial set of cardiac enzymes were within normal limits. EKG did not show any acute ischemic changes. CTA of the thorax was negative. Patient will be admitted to observation status and I will trend out her cardiac enzymes and obtain serial EKGs. Psychiatry consultation has been requested. Pt was briefly under Segudno Act in the [facility] 01/19/[address] Gagnon, Psychiatrist who lifted her Segundo Act. (Above information obtained from medical records. Pt left AMA before I was able to interview her) - obtain serial Micheal and serial EKGs - obtain echocardiogram - obtain Lexiscan - obtain fasting lipid panel - ASA - SCDs for DVT prophylaxis - supportive care 2) Polysubstance Abuse - Pt seen by Psychiatry and case d/w Dr. Joe Loja reviewed. Pt has been receiving narcotics/bupinephrine from multiple sources. - Pt left AMA - I called [facility] to inform and request that [facility] reach out to pt & try to schedule appointment. - I also called pt's PCP to update him to pt's situation and difficulties with polysubstance abuse. (2) IVDU (intravenous drug user) Code(s): F19.90 - Other psychoactive substance use, unspecified, uncomplicated Status: Acute (1) Chest pain Qualifiers: Chest pain type: unspecified Qualified Code(s): R07.9 - Chest pain, unspecified
[2018-03-24 11:00] LABS: Magnesium 1.9 mg/dL (1.5-2.5)
[2018-03-24] MEDS ORDERED: KCL 20 mEq/D5W/NaCl 0.45% Inj 1,000 ML IV.CONT SCH (11:00)
[2018-03-24 11:09] LABS: Creatine Kinase 184 U/L (26-192); Free T4 (Free Thyroxine) 1.13 ng/dL (0.76-1.46)
[2018-03-24 12:59] VITALS: BP 138/83; PULSE 85; RESP 20; TEMP 98.1; O2SAT 98
--- NOTE | 2018-03-24 14:25 | P.CONPSY ---
Provisional Diagnosis Admission Date: March 24, 2018 08:59 [place] I.: Substance-induced mood disorder, heroine and benzodiazepines use disorder, history of bipolar disorder, anxiety [place] II.: Cluster B personality traits [place] III.: Hepatitis C, hypothyroidism, lower back pain [place] IV.: Persistent drug abuse [place] V.: 53 History of Present Illness Service: Medicine Primary Care Provider: Mitch Bowser Provider: Mitch Easley Chief Complaint: chest pain History of Present Illness: The patient is a 32-year-old woman, domiciled along in [facility], single , unemployed, with an extensive psychiatric history of opiates and benzodiazepines use disorder, IV drug user, bipolar disorder, anxiety, 2 previous psychiatric hospitalizations, no previous suicide attempts, recently Segundo acted in the morning of December, specifically January 19, 2018, she was seen and cleared by Dr. Gagnon, documentation review, medical history of lower back pain, hypothyroidism, hepatitis C . Most recently patient states that she used heroin the evening prior to admission. Patient reports that she is self- medicating for pain. Unclear what the source of this pain is. Patient also complains of depression due to a breakup with her boyfriend. Patient reported to the ER with complaint of chest pain and shortness of breath. Initial set of cardiac enzymes were within normal limits. EKG did not show any acute ischemic changes. CTA of the thorax was negative. Patient will be admitted to observation status and I will trend out her cardiac enzymes and obtain serial EKGs. Psychiatry consultation has been requested due to symptoms of depression and potential suicidal attempt. EMR was reviewed. The case was discussed directly with primary medical team. On my psychiatric evaluation I find a patient that is irritable, superficially cooperative, oddly related and bizarre. At times the patient becomes quite inappropriate. However she is redirectable. The patient reports that the reason she is here is because she has used IV heroine "because I did not have my medication for anxiety and pain and I needed to be medicated". She reports that she has been taking Xanax 1 mg 3 times daily, Restoril 30 mg at bedtime, clonazepam 2 mg 3 times daily prescribed by different doctors. She says that she suffers of a very bad anxiety and lower back pain and she needs to be on medication, and when she runs out of this medication she is heroine. At this moment the patient denies symptomatology of depression, she says that her mood is much improved now, denies suicidal and homicidal ideation, denies visual and auditory hallucinations. Patient does report that she had an argument with her boyfriend , but she is spoke by phone with him and they are now in good terms. The patient is oriented 3, her attention span seems to be diminished, she seems to be a little bit internally preoccupied, jittery and tremulous. [facility] - History History Provided By: Patient - Medical History Medical History: Medical History (Last Updated 03/24/18 @ 06:53 by Lily Elliott MD) Hepatitis C IVDU (intravenous drug user) - Surgical History Surgical History: Surgical History (Last Updated 03/24/18 @ 06:53 by Lily Elliott MD) H/O LEEP History of tonsillectomy - Tobacco History Second Hand Smoke Exposure: Yes Tobacco Use In Past 30 Days: Yes Smoking Status: Current every day smoker Tobacco Type: Cigarettes Packs Per Day: 1 Cigarettes Per Day: 20.0 - Alcohol History How Often Do You Have a Drink Containing Alcohol: Monthly or less - Substance Use History Substance History: Active Abuse - Substance Use Type Heroin Status: Active Route Used: Intravenously Reason for Use: Feels Good, Socialization - Travel History Recent Travel in the [place] Within the Last 8 Weeks: No Recent Travel Out of the Country Within the Last 8 Weeks: No - Immunization History Tetanus Immunization: Unsure Medications and Allergies Active Medications: Active Medications Acetaminophen (Tylenol) 500 mg PO Q4H PRN PRN Reason: HEADACHE Alprazolam (Xanax) 0.5 mg PO TID PRN PRN Reason: ANXIETY Aspirin (Aspirin) 325 mg PO DAILY RAYMOND Potassium Chloride/Dextrose/Sod Cl (D5w/1/2ns + Kcl 20 Meq Inj) 1,000 mls @ 75 mls/hr IV.CONT .[id number] RAYMOND Stop: 03/25/18 13:39 Last Infusion: 03/24/18 14:21 Dose: Infused Nitroglycerin (Nitrostat Sl) 0.4 mg SL Q5M PRN PRN Reason: ANGINA Sodium Chloride (Ns Flush) 2 ml IV.FLUSH BID RAYMOND Sodium Chloride (Ns Flush) 2 ml IV.FLUSH UNSCH PRN PRN Reason: FLUSH AFTER USING IV ACCESS Temazepam (Restoril) 15 mg PO HS PRN PRN Reason: INSOMNIA Allergies Allergy/AdvReac Type Severity Reaction Status Date / Time ketorolac Allergy Severe LEG EDEMA Verified 03/24/18 06:22 fluconazole AdvReac Severe STOMACH Verified 03/24/18 06:22 IRRITATION Home Medications Medication Instructions Recorded Confirmed Type cabergoline 0.5 mg PO WEEKLY 01/19/18 03/24/18 History clonazepam [Klonopin] 3 mg PO TID 01/19/18 03/24/18 History hydrocodone-acetaminophen 1 tab PO Q6H PRN 01/19/18 03/24/18 History levothyroxine 100 mcg PO DAILY 01/19/18 03/24/18 History Exam Vital signs: Vital Signs 03/24/18 06:23 03/24/18 07:19 03/24/18 07:21 Temperature 98.2 F Pulse Rate 109 H 88 86 Respiratory Rate 16 16 Blood Pressure 160/101 H 150/92 H Pulse Oximetry 100 98 99 03/24/18 10:35 03/24/18 12:58 Temperature 98.5 F 98.1 F Pulse Rate 69 85 Respiratory Rate 18 20 Blood Pressure 151/86 H 138/83 Pulse Oximetry 99 98 Intake & Output 03/23/18 03/24/18 03/24/18 18:59 06:59 18:59 Intake Total 1500 / 1500 Balance 1500 / 1500 Weight 63.503 kg 83.7 kg Intake: IV 1500 / 1500 D5W/1/2NS + KCL 20 mEq Inj 1, 200 / 200 000 ML @ 75 mls/hr IV.CONT . [id number] [facility] Rx#:[id number] Zosyn 3.375 GM Premix 50 ML @ 50 / 50 100 mls/hr IV.SIG ONCE ONE Rx#: [id number] NS Inj 1,000 ML @ Wide Open IV. 1000 / 1000 SIG BOLUS ONE Rx#:[id number] Vancomycin Inj 1,000 MG In NS 250 / 250 Inj 250 ML @ 250 mls/hr IV.SIG ONCE ONE Rx#:[id number] Other: Weight On Admission 83.461 kg Mental Status Examination Appearance: Disheveled Consciousness: Alert Orientation: x4 Motor Activity: Normal gait Speech: Unremarkable Language: Adequate Fund of Knowledge: Adequate Attention and Concentration: Adequate Memory: Unremarkable Mood: Appropriate Affect: Appropriate Thought Process & Associations: Intact Thought Content: Appropriate Hallucination Type: None Delusion Type: Bizarre Suicidal Ideation: No Suicidal Plan: No Suicidal Intention: No Homicidal Ideation: No Homicidal Plan: No Homicidal Intention: No Insight: Poor Judgment: Poor Assessment and Plan - Assessment (1) Substance induced mood disorder Code(s): F19.94 - Other psychoactive substance use, unspecified with psychoactive substance-induced mood disorder Status: Acute - Plan Plan: Estimated LOS: [] days On my psychiatric evaluation today I find a patient that is superficially cooperative, a little bit irritable, inappropriate, kind of bizarre. The patient reports that she was depressed at the moment of the arrival to the hospital after having an argument with her boyfriend, but they are now in good terms. She reports that she came to the hospital because she was having chest pain she was not "feeling well, after using IV heroine for pain and anxiety". At this moment the patient is goal oriented, she denies suicidal and homicidal ideation, denies visual and auditory hallucinations. There is a patient who has an extensive psychiatric history of IV drug use, so I asked the patient and opiates use disorder, bipolar disorder, anxiety, poor compliant with psychotropics, previous psychiatric admissions, previously Segundo acted. She also has visible cluster B traits that suggest an underlying personality pathology added to her substance related problems. In my opinion the patient does not meet criteria for involuntary psychiatric admission. Her inappropriate and bizarre behavior in my opinion is secondary to substance- induced mood disorder and character structure. Patient does benefit of detox a comprehensive rehabilitation. I have offered her a [facility], but she declined stating that she is not going to go to detox or rehab. I provided support, motivational psych education to the patient. Patient must remain in a [facility] protocol, will have to be careful with drug- seeking behavior. If the patient is here tomorrow I would be happy to do a quick follow-up for clearance for the patient is clinically sober. Justification for Continued Inpatient Stay: No admission criteria.
--- NOTE | 2018-03-24 17:31 | ECHRPT ---
Indication: CHEST PAIN CONCLUSIONS The left ventricular systolic function is normal with an estimated ejection fraction in the range of 60-65%. Normal left ventricular size and wall thickness. No regional wall motion abnormalities are present. Normal diastolic function. No significant valvular heart disease. IVC is normal size and collapses >50% with inspiration indicating normal CVP. BP: / HR: Rhythm: Sinus MEASUREMENTS (Male / Female) Normal Values Technical Quality:Good 2D ECHO LV Diastolic Diameter PLAX 4.3 cm 4.2 - 5.9 / 3.9 - 5.3 cm LV Systolic Diameter PLAX 3.1 cm IVS Diastolic Thickness 1.1 cm 0.6 - 1.0 / 0.6 - 0.9 cm LVPW Diastolic Thickness 1.1 cm 0.6 - 1.0 / 0.6 - 0.9 cm LV Relative Wall Thickness 0.5 RV Internal Dim ED PLAX 2.7 cm LVOT Diameter 1.8 cm LA Systolic Diameter LX 3.4 cm 3.0 - 4.0 / 2.7 - 3.8 cm LV Ejection Fraction MOD 4C 65.5 % LV Ejection Fraction 4C AL 66.9 % M-MODE Aortic Root Diameter MM 2.3 cm LA Systolic Diameter MM 3.3 cm LA Ao Ratio MM 1.4 AV Cusp Separation MM 1.8 cm DOPPLER AV Peak Velocity 129.0 cm/s AV Peak Gradient 6.7 mmHg LVOT Peak Velocity 121.0 cm/s LVOT Peak Gradient 5.9 mmHg AV Area Cont Eq pk 2.4 cm MV Area PHT 3.4 cm Mitral E Point Velocity 97.7 cm/s Mitral A Point Velocity 74.0 cm/s Mitral E to A Ratio 1.3 LV E' Lateral Velocity 10.5 cm/s Mitral E to LV E' Lateral Ratio 9.3 LV E' Septal Velocity 7.6 cm/s Mitral E to LV E' Septal Ratio 12.9 PV Peak Velocity 92.3 cm/s PV Peak Gradient 3.4 mmHg FINDINGS LEFT VENTRICLE The left ventricular systolic function is normal with an estimated ejection fraction in the range of 60-65%. Normal left ventricular size. Wall thickness is normal. No regional wall motion abnormalities are present. RIGHT VENTRICLE Normal right ventricular size and systolic function. LEFT ATRIUM The left atrial size is normal. RIGHT ATRIUM The right atrial size is normal. ATRIAL SEPTUM Normal atrial septal thickness without atrial level shunting by limited color doppler interrogation. AORTA The aortic root and proximal ascending aorta are normal in size on limited imaging. MITRAL VALVE Structurally normal mitral valve. No mitral valve stenosis or regurgitation. AORTIC VALVE Trileaflet aortic valve. Trace aortic valve regurgitation. TRICUSPID VALVE Structurally normal tricuspid valve. No tricuspid valve stenosis or regurgitation. PULMONARY VALVE The pulmonary valve is not well visualized. VESSELS The inferior vena cava is normal in size. PERICARDIUM No pericardial effusion. Daniel Mcgregor MD (Electronically Signed) Final Date:24 March 2018 17:30
--- NOTE | 2018-03-24 17:46 | ECG ---
Date Performed: 03/24/2018 Time Performed: 06:26:29 PTAGE: 32 years EKG: SINUS TACHYCARDIA ABNORMAL RHYTHM ECG NO PREVIOUS TRACING DOCTOR: Heaven Lovett Interpretating Date/Time 03/24/2018 17:40:27
[2018-03-25] MEDS ORDERED: Aspirin 325 MG Tablet PO SCH (09:00)
== END 2018-03-24 14:28 | disposition left against medical advice (07) ==
LOC: NEPE 06:17 → NEDA 06:17 → NEPHCDU 10:32
PROVIDERS: ADMIT Hospitalist; ATTEND Hospitalist
DX: Z76.5 Malingerer [conscious simulation]; F41.9 Anxiety disorder, unspecified; F15.90 Other stimulant use, unspecified, uncomplicated; F31.9 Bipolar disorder, unspecified; R94.31 Abnormal electrocardiogram [ECG] [EKG]; F17.210 Nicotine dependence, cigarettes, uncomplicated; F11.90 Opioid use, unspecified, uncomplicated; M54.5 Low back pain; F19.94 Other psychoactive substance use, unspecified with psychoactive substance-induced mood disorder; R07.9 Chest pain, unspecified; B19.20 Unspecified viral hepatitis C without hepatic coma